=== PATIENT | male | born 1950 | race Caucasian/White ===

== ENCOUNTER 2017-01-13 07:54 | Day surgery (SDC) | payer MEDICAID ==
[~2017-01-13] VITALS: Ht 167.6 cm; Wt 129.7 kg
[2017-01-13] MEDS ORDERED: SODIUM CHLORIDE 0.9% 1,000 ML IV ONE (09:00)
[2017-01-13] MEDS ORDERED: CYCLOPENTOLATE HCL 1% OPHTH DROPS 2ML RIGHTEYE ONE (09:15)
[2017-01-13] MEDS ORDERED: TROPICAMIDE 1% OPHTH DROPS 15ML RIGHTEYE ONE (09:15)
[2017-01-13] MEDS ORDERED: PHENYLEPHRINE HCL 10% OPHTH DROPS 5ML RIGHTEYE ONE (09:15)
[2017-01-13] MEDS ORDERED: HYALURONATE SODIUM 14 MG/ML 0.85ML SYRINGE IO ONE ×2 (09:50→10:59)
[2017-01-13] MEDS ORDERED: BALANCED SALT IRRIG SOLN COMB1 500ML OP SCH (10:00)
[2017-01-13] MEDS ORDERED: MIDAZOLAM HCL 2 MG/2 ML VIAL ONE (11:43)
[2017-01-13] MEDS ORDERED: FENTANYL CITRATE/PF 50MCG/ML 2ML VIAL ONE (11:43)
[2017-01-13] MEDS ORDERED: DEXAMETHASONE 4MG/ML 1ML VIAL ONE (12:51)
[2017-01-13] MEDS ORDERED: ONDANSETRON HCL 4MG/2ML VIAL ONE (12:51)
[2017-01-13] MEDS ORDERED: SODIUM CHLORIDE 0.9% 10ML VIAL ONE (12:51)
[2017-01-13] MEDS ORDERED: CEFAZOLIN SODIUM 1000MG/VIAL ONE (12:51)
[2017-01-13] MEDS ORDERED: MEPERIDINE HCL/PF 25MG/ML CPJ IV PRN (13:00)
[2017-01-13] MEDS ORDERED: LABETALOL HCL 20MG/4ML CARPUJECT IV PRN (13:00)
[2017-01-13] MEDS ORDERED: HYDROMORPHONE HCL/PF 2MG/ML CPJ IV PRN (13:00)
[2017-01-13] MEDS ORDERED: ONDANSETRON HCL 4MG/2ML VIAL IV PRN (13:00)
[2017-01-13] MEDS ORDERED: AMLO10TA80 PO (13:10)
[2017-01-13] MEDS ORDERED: LISI40TA4 PO (13:10)
[2017-01-13] MEDS ORDERED: ATEN-42 PO (13:10)
[2017-01-13] MEDS ORDERED: HYDR25TA PO (13:10)
[2017-01-13] MEDS ORDERED: GLIP5TAB12 PO (13:10)
[2017-01-13] MEDS ORDERED: METF10002 PO (13:10)
[2017-01-13] MEDS ORDERED: DOXA4TAB3 PO (13:10)
[2017-01-13] MEDS ORDERED: LIDOCAINE HCL/PF 2% 20 MG/ML 10ML VIAL ONE (14:11)
[2017-01-13] MEDS ORDERED: BALANCED SALT IRRIG SOLN 15ML ONE (14:11)
[2017-01-13] MEDS ORDERED: TETRACAINE 0.5% OPHTH DROPS 4ML ONE (14:11)
[2017-01-13] MEDS ORDERED: NEO/POLYMYX B SULF/DEXAMETH OPHTH OINT 3.5GM ONE (14:11)
[2017-01-13] MEDS ORDERED: CIPROFLOXACIN 0.3% OPHTH SOLN 2.5ML ONE (14:11)
[2017-01-13] MEDS ORDERED: PREDNISOLONE ACETATE 1% OPHTH DROPS 1ML ONE (14:11)
== END 2017-01-13 14:00 | disposition home or self-care (01) ==
LOC: OR 07:54
PROVIDERS: ATTEND Ophthalmology
DX: H25.9 Unspecified age-related cataract (principal); E66.01 Morbid (severe) obesity due to excess calories; I10 Essential (primary) hypertension; D64.9 Anemia, unspecified; E11.9 Type 2 diabetes mellitus without complications
CPT/HCPCS: 66984; 82962; A4216; J0690; J1100; J2250; J2405; J3010; J3490; J7030; V2632